=== PATIENT | male | born 1985 | race Caucasian/White ===

== ENCOUNTER → 2021-07-30 | Outpatient (CLI) | payer OTHER | LOC: EMI 07-16 13:00 | DX: M87.08 Idiopathic aseptic necrosis of bone, other site (principal); M25.452 Effusion, left hip; M25.451 Effusion, right hip; M70.62 Trochanteric bursitis, left hip; M70.61 Trochanteric bursitis, right hip | CPT/HCPCS: 73721 ==

== ENCOUNTER → 2021-08-09 | Outpatient (CLI) | payer OTHER ==
[~2021-08-09] MED LIST: ALEVE220 MG PO; METHOCARBAMOL500 MG PO
[2021-08-09 12:21] LABS: HEMOGLOBIN 14.4 gm/dl (14.0-17.5); RED BLOOD COUNT 5.31 M/UL (4.20-5.50); WHITE BLOOD COUNT 6.1 K/UL (4.5-11.0)
[2021-08-09 12:46] LABS: BUN/CREATININE RATIO 11 (0-10)
== END ==
LOC: OPSV2 11:00
PROVIDERS: Orthopaedic Surgery
DX: Z01.818 Encounter for other preprocedural examination (principal); M87.9 Osteonecrosis, unspecified
CPT/HCPCS: 36415; 71046; 80048; 81001; 85027; 93005